=== PATIENT | male | born 1980 | race Caucasian/White ===

== ENCOUNTER 2018-08-10 20:42 | Emergency (ER) | payer OTHER ==
[~2018-08-10] VITALS: Ht 180.3 cm; Wt 113.5 kg
[~2018-08-10 20:42] MED LIST: NAPROSYN500 MG PO; ROBAXIN 750 MG750 M1 PO
[2018-08-10 21:11] LABS: ABSOLUTE BASOPHILS 0.1 thou/uL (0.0-0.2); ABSOLUTE EOSINOPHILS 0.2 thou/uL (0.0-0.7); ABSOLUTE LYMPHOCYTES 2.5 thou/uL (0.8-5.3); ABSOLUTE MONOCYTES 0.7 thou/uL (0.0-1.2); ABSOLUTE NEUTROPHILS 5.8 thou/uL (1.6-8.1); EOSINOPHILS 1.9 %; HEMATOCRIT 45.3 % (42.0-52.0); HEMOGLOBIN 15.9 gm/dL (14.0-18.0); LYMPHOCYTES 27.3 %; MCH 31.6 pg (26.0-34.0); MCHC 35.2 g/dL (28.0-37.0); MONOCYTES 7.1 %; MPV 7.2 fl. (7.2-11.1); NUCLEATED RBCS 0 /100WBC; PLATELET COUNT* 344 thou/uL (150-400); POLYS 62.7 %; RBC 5.03 mil/uL (4.50-6.00); RDW-CV 13.2 % (10.5-14.5); WBC 9.3 thou/uL (4.0-11.0)
[2018-08-10 21:20] LABS: CALCIUM 8.8 mg/dL (8.5-10.1); CREATININE 0.9 mg/dL (0.6-1.3); POTASSIUM 3.7 mmol/L (3.5-5.1)
[2018-08-10 21:24] LABS: ALBUMIN 3.9 g/dL (3.4-5.0); TOTAL BILIRUBIN 0.5 mg/dL (<0.1-1.0); TOTAL PROTEIN 7.1 g/dL (6.4-8.2)
[2018-08-10 22:29] LABS: URINE BILIRUBIN NEGATIVE (Negative); URINE BLOOD NEGATIVE (Negative); URINE CLARITY CLEAR; URINE COLOR YELLOW; URINE GLUCOSE-RANDOM 2+ (Negative); URINE KETONES NEGATIVE (Negative); URINE LEUKOCYTES-REFLEX NEGATIVE (Negative); URINE NITRITE-REFLEX NEGATIVE (Negative); URINE PROTEIN NEGATIVE (Negative); URINE SPECIFIC GRAVITY <= 1.005 (1.005-1.030); URINE UROBILINOGEN 0.2 E.U./dl (0.2-1.0)
[2018-08-10 23:10] VITALS: BP 114/66
[2018-08-11] MEDS ORDERED: NORCO 5-325 TA1 EACH PO (16:27)
== END 2018-08-10 23:10 | disposition left against medical advice (07) ==
LOC: M.ERS 20:42
PROVIDERS: Physician Assistant
DX: K43.9 Ventral hernia without obstruction or gangrene (principal); F17.210 Nicotine dependence, cigarettes, uncomplicated; Z90.49 Acquired absence of other specified parts of digestive tract

== ENCOUNTER 2018-08-11 08:03 | Observation (INO) | payer OTHER ==
[~2018-08-11] VITALS: Ht 182.9 cm; Wt 113.4 kg
--- NOTE | ~2018-08-11 | OP ---
[address] [address] OPERATIVE REPORT Name: SIGRID MASON Room: [address]Alina#: [id number] Admission: 08/11/18 Attend Phys: Antwan Gonzalez DO Discharge: Date of : 84 Report #: [id number] THIS REPORT FOR: //name// CC: Antwan Gonzalez [facility] physician/PCP DATE OF SERVICE: 08/11/2018 PREPROCEDURE DIAGNOSIS: Incarcerated ventral hernia. POSTPROCEDURE DIAGNOSIS: Incarcerated ventral hernia. SURGEON: Antwan Gonzalez DO and Sanjiv Farah, PGY-3. [employer]: Sanjiv Recinos MS3. OPERATION PERFORMED: Ventral hernia repair with mesh, recurrent and partial omentectomy. ANESTHESIA: General. ESTIMATED BLOOD LOSS: 20 mL. SPECIMEN REMOVED: Incarcerated omentum and hernia sac. COMPLICATIONS: None. DISPOSITION: To PACU in stable condition. INDICATIONS: The patient is a 38-year-old male who presented to the Emergency Room with complaints of abdominal pain. He was found to have an incisional hernia superior to his umbilicus at the site of a previous appendectomy. The CT showed the hernia with contents of fat, but no bowel. He was informed of risks and benefits and told he would be admitted the evening prior for surgery; however, he left against medical advice and re-presented the following morning n.p.o. with similar complaints. He was again consented for open hernia repair with mesh. All of his questions were answered and he decided to proceed with surgery. TECHNIQUE OF SURGERY: After informed consent was obtained, the patient was brought to the operating room and placed in the supine position. SCDs were applied. Preoperative antibiotics were given. General anesthesia was administered with an ET tube. The patient was prepped and draped in usual sterile fashion. Surgical pause was held to confirm proper patient and procedure. A 4 cm horizontal incision was made over the previous incision. Dissection was carried down until [place] [address] OPERATIVE REPORT Name: SIGRID DIXON JR Room: [address] M.R.#: [id number] Admission: 08/11/18 Attend Phys: Antwan Gonzalez DO Discharge: Date of : 84 Report #: [id number] dissection and cautery were used to free the hernia from surrounding fatty tissues. The hernia was noted to be fairly scarred in to the surrounding tissue. The sac was opened and the omentum contents were removed. The portion of the omentum was noted to be very congested and erythematous. This was later removed. Once the hernia sac was circumferentially excised from the hernia defect, the LigaSure Impact device was used to complete this as well as create the partial omentectomy leaving behind hemostatic and healthy appearing omentum. This omentum was then returned into the abdomen. The fascial edges were better defined. The defect itself was noted to be very small, barely large enough to place a finger approximately 1.5 cm. A 6.[address] mesh was selected, soaked and then introduced into the abdomen in an intraperitoneal position. The fascia was closed over top of the mesh using interrupted 0 Prolene. The defect and the repair were then palpated and noted to be adequately closed. The subcutaneous tissue was closed in a layered fashion using 3-0 Vicryl and the skin was closed with 4-0 Monocryl. Wounds were cleansed and dressed with Mastisol, Steri-Strips, Tegaderm with an overlying pressure dressing. The patient tolerated the procedure well. All counts were correct at the close of the case. The patient was emerged from anesthesia and transferred to the PACU in stable condition. By: [id number] Farah DO /yanira
[2018-08-11 08:12] VITALS: BP 125/75
[2018-08-11 09:37] VITALS: BP 127/71
--- NOTE | 2018-08-11 12:45 | NUR ---
PATIENT ARRIVED TO UNIT FROM PACU AT 1240. ALERT AND ORIENTED X 4. VITAL SIGNS STABLE ON 3L O2 NASAL CANULA. IV PATENT AND SALINE LOCKED. PAIN BEING MANAGED WITH IV PAIN MEDICATION. DENIES NAUSEA AT THIS TIME. ORIENTED TO ROOM. CALL LIGHT WITHIN REACH. NURSING WILL CONTINUE TO MONITOR.
[2018-08-11 16:21] VITALS: BP 127/71
[2018-08-11] MEDS ORDERED: NORCO 5-325 TA1 EACH PO (16:27)
[2018-08-11 16:33] VITALS: BP 127/71
--- NOTE | 2018-08-11 17:12 | NUR ---
PATIENT DISCHARGED FROM UNIT AT 1645. ALERT AND ORIENTED X 4. VITAL SIGNS STABLE ON ROOM AIR. PAIN BEING MANAGED WITH PAIN MEDICATION. DENIES NAUSEA. ABDOMINAL BINDER IN PLACE. MIDLINE DRESSING TO ABDOMEN CLEAN, DRY, AND INTACT. TOLERATING REGULAR DIET. DISCHARGE INSTRUCTIONS, MEDICATION INFORMATION, AND SCRIPT GIVEN TO PATIENT. LEFT WITH ALL BELONGINGS. PATIENT LEFT WITH SIGNIFICANT OTHER VIA CAR.
[2018-08-11 17:17] VITALS: BP 127/71
--- NOTE | 2018-08-14 16:07 | PATH ---
[address] [address] PATHOLOGY RPT PROCEDURE Name: MICHAEL DIXON JR Room: [address] [place]#: [id number] Admission: 08/11/18 Date of : 84 Discharge: 08/11/18 Report #: [id number] Path Case #: [id number] [facility] Accession Number: [id number] . 01 Material submitted: . HERNIA SAC AND INCARCERATED OMENTUM . 01 Clinical history: . Incarcerated incisional hernia . 02 Diagnosis: Hernia sac, incarcerated omentum: - Benign fibrofatty tissue with fresh hemorrhage, mild chronic inflammation and fibroplasia. (DAYAMI/db; 08/14/2018) LBQ/08/14/2018 . 02 Electronically signed: . Saroj Gupta MD, Pathologist NPI- [id number] . 01 Gross description: . The specimen is received in formalin, labeled "Michael Dixon Jr., hernia sac, incarcerated omentum". Received are multiple segments of bright yellow lobulated tissue with a slight amount of attached fibromembranous tissue admixed with omentum measuring 12.8 x 9.5 x 3.8 cm in greatest dimensions. Sectioning reveals yellow-thomas to bright yellow, lobulated cut surfaces throughout with no grossly distinct nodules or lesions. The specimen is submitted representatively in cassette A1. (CAA; 08/13/2018) QAC/QAC . 02 CPT . 956759 Specimen Comment: A courtesy copy of this report has been sent to Specimen Comment: [phone]. Specimen Comment: Report sent to Performed at: [address], [place] [id number] MD Mario Beltran MD Phone: [phone] Performed at: 02 [facility] [address], [place], [place] [id number] MD Saroj Gupta MD Phone: [phone]
== END 2018-08-11 16:45 | disposition home or self-care (01) ==
LOC: M.SUR 08:03 → M.ERS 08:03 → M.TBA 11:37 → M.ORTHSURG 12:35
PROVIDERS: ADMIT Surgery
DX: K43.6 Other and unspecified ventral hernia with obstruction, without gangrene (principal); F17.210 Nicotine dependence, cigarettes, uncomplicated; Z72.89 Other problems related to lifestyle; Z79.899 Other long term (current) drug therapy